=== PATIENT | male | born 1955 | race Caucasian/White ===

== ENCOUNTER 2021-09-01 10:36 | Inpatient (IN) ==
[~2021-09-01 10:36] MED LIST: Buffered Lidocaine 1% SYRIN 1 ml INTRADERM ONE; Lactated Ringers 1000 ml BAG 1,000 ML IV SCH
[2021-09-01] MEDS ORDERED: Propofol 10 MG/ML 20 ML BTL ONE (10:39)
[2021-09-01] MEDS ORDERED: Lidocaine 2% PF 5 ML VIAL ONE (10:39)
[2021-09-01] MEDS ORDERED: ceFAZolin 2 GM PREMIX 2 GM/50 ML BAG ONE (11:00)
[2021-09-01] MEDS ORDERED: Midazolam 2 mg/2 ml VIAL 1 mg/ml 2 ml VIAL (2 mg) ONE ×2 (11:36→13:02)
[2021-09-01] MEDS ORDERED: ROPIVACAINE 5 MG/ML 30 ML BTL (0.5%) ONE (11:38)
[2021-09-01] MEDS ORDERED: Lidocaine 1% MPF 5 ML VIAL ONE (11:38)
[2021-09-01 11:54] LABS: INR 1.06 (0.86-1.15)
[2021-09-01] MEDS ORDERED: Ropivacaine 5 MG/ML 20 ML VIAL 0.5% (100 MG) ONE (12:07)
[2021-09-01] MEDS ORDERED: Bupivacaine 0.5% SDV PF 30ML VIAL ONE (12:42)
[2021-09-01] MEDS ORDERED: Ketamine HCL 50 mg/ml 10 ml VIAL (500 MG) ONE (12:57)
[2021-09-01] MEDS ORDERED: Glycopyrrolate IV 0.2 MG/ML 1 ML VIAL ONE (13:12)
[2021-09-01] MEDS ORDERED: Magnesium Hydroxide LIQ 30 ML UDC PO PRN (13:21)
[2021-09-01] MEDS ORDERED: Lactulose 30 ml UDC PO PRN (13:21)
[2021-09-01] MEDS ORDERED: diPHENhydraMINE 25 mg TAB PO PRN (13:21)
[2021-09-01] MEDS ORDERED: Ondansetron 4 mg VIAL 2 MG/ML 2 ml VIAL IV PRN ×2 (13:21→13:58)
[2021-09-01] MEDS ORDERED: Morphine 2 MG/ML SYRINGE IV PRN (13:21)
[2021-09-01] MEDS ORDERED: Ondansetron ODT 4 mg TAB 4 MG TAB PO PRN (13:21)
[2021-09-01] MEDS ORDERED: diPHENhydraMINE IV 50 MG/ML 1 ml VIAL (BENADRYL) IV PRN (13:21)
[2021-09-01] MEDS ORDERED: Mometasone/Formoter 200/5 MDI INH PRN (13:26)
[2021-09-01] MEDS ORDERED: fentaNYL 100 mcg/2 ml 50 MCG/ML VIAL IV PRN (13:58)
[2021-09-01] MEDS ORDERED: Acetaminophen IV 1 GM/100ML 100 ML IV PRN (13:58)
[2021-09-01] MEDS ORDERED: DiMENhydriNATE IV 50 mg/ml 1 ml VIAL IV PUSH PRN (13:58)
[2021-09-01] MEDS ORDERED: Naloxone 0.4 mg VIAL 0.4 mg/ml 1 ml VIAL IV PRN (13:58)
[2021-09-01] MEDS ORDERED: HYDROmorphone 1 MG/1 ML SYRINGE IV PRN (13:58)
[2021-09-01] MEDS ORDERED: Acetaminophen IV 1 GM/100ML VI 100 ML ONE (14:02)
[2021-09-01] MEDS ORDERED: Ondansetron 4 mg VIAL 2 MG/ML 2 ml VIAL ONE (14:18)
[2021-09-01] MEDS ORDERED: EPHEDrine (Pressors) 50 MG/ML VIAL ONE (14:22)
[2021-09-01] MEDS: Lactated Ringers 1000 ml BAG 1,000 ML IV SCH (19:17)
[2021-09-01] MEDS: Magnesium Hydroxide LIQ 30 ML UDC PO SCH (21:10)
[2021-09-01] MEDS: ceFAZolin 1 GM ADVAN 1 GM in NS 0.9% 50 ML 50 ML IVPB SCH (21:11)
[2021-09-02] MEDS: ceFAZolin 1 GM ADVAN 1 GM in NS 0.9% 50 ML 50 ML IVPB SCH ×2 (05:06→13:04)
[2021-09-02] MEDS: Lactated Ringers 1000 ml BAG 1,000 ML IV SCH (05:09)
[2021-09-02 06:23] LABS: Hematocrit 40 % (42-52); Hemoglobin 13.4 g/dL (14.0-18.0); Mean Platelet Volume 7.8 fL (7.4-10.4); Platelet Count 170 10^3/uL (150-450)
[2021-09-02 06:40] LABS: Potassium 4.3 mmol/L (3.5-5.0); eGFR CKD-EPI 58.6 (>60)
[2021-09-02] MEDS: Magnesium Hydroxide LIQ 30 ML UDC PO SCH (08:03)
[2021-09-02] MEDS ORDERED: Morphine ER 15 mg TAB ** extended release PO SCH (09:00)
[2021-09-02] MEDS ORDERED: Vitamin THERAPEUTIC TAB PO SCH (09:00)
[2021-09-02 11:58] VITALS: BP 152/72
== END 2021-09-02 15:35 | disposition home or self-care (01) | DRG 302 ==
LOC: AA 10:36 → SSU 18:31
PROVIDERS: ADMIT Orthopaedic Surgery Adult Reconstructive Orthopaedic Surgery; ATTEND Orthopaedic Surgery Adult Reconstructive Orthopaedic Surgery